=== PATIENT | female | born 1950 | race Caucasian/White ===

== ENCOUNTER 2022-06-19 13:15 | Emergency (ER) | payer MEDICARE, BC, SELFPAY ==
[2022-06-19 13:19] VITALS: BP 176/77; PULSE 82; RESP 18; TEMP 36.3; O2SAT 95; BMI 33.8
--- NOTE | 2022-06-19 13:37 | CRLHL7_ITS ---
For Patients: As a result of the Century Cures Act, medical imaging exams and procedure reports are released immediately into your electronic medical record. You may view this report before your referring provider. If you have questions, please contact your health care provider. INDICATION: Hematuria. Right-sided abdominal pain. TECHNIQUE: CT abdomen and pelvis without contrast. COMPARISON: None. FINDINGS: Lower chest: Minimal atelectasis at the lung bases Liver: Small hypoattenuating lesion at the dome of the right hepatic lobe, too small to characterize. Gallbladder and bile ducts: No stones or inflammation. No biliary dilatation. Pancreas: Unremarkable. No mass or inflammation. Spleen: Normal in size. No masses. Adrenal glands: Normal in size. No nodules. Kidneys: 7 millimeter stone in the mid/distal right ureter resulting in moderate hydronephrosis. Additional bilateral nonobstructing renal calculi are present. Asymmetric right perinephric fat stranding is noted. There is a small right renal cysts. GI tract: Unremarkable. Normal in caliber. No sign of mass or inflammation. Normal appendix. Colonic diverticulosis. Vasculature: Scattered atherosclerosis. 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 Lymph nodes: No lymphadenopathy. Peritoneum/Abdominal Wall: Prior ventral hernia repair. Residual or recurrent lower abdominal periumbilical fat containing hernia. No sign of mass or infiltration. No free air or significant free fluid. Pelvis: Lobular uterine contour with multiple coarse calcifications, likely reflecting fibroids Bones: No acute osseous abnormality. Degenerative spondylosis. IMPRESSION: 1. 7 millimeter stone in the mid/distal right ureter results in moderate hydronephrosis with asymmetric right perinephric fat stranding. 2. Additional small bilateral nonobstructing renal calculi. Please note that all CT scans at this facility use dose modulation, iterative reconstruction, and/or weight-based dosing when appropriate to reduce radiation dose to as low as reasonably achievable. Dictated by Johnny Gonsales MD @ 06/19/2022 2:17:27 PM (Electronically Signed)
[2022-06-19 13:48] LABS: Appearance Urine Cloudy (Clear); Bilirubin Urine 1+ (Negative); Blood Urine 3+ (Negative); Color Urine Brown (Yellow); Glucose Urine Negative (Negative); Ketones Urine Trace (Negative); Leukocyte Esterase Urine Negative (Negative); Nitrite Urine Negative (Negative); Protein Urine 2+ (Negative); Specific Gravity Urine >= 1.030 (1.000-1.030); Urobilinogen Urine 0.2 (0.2-1.0); pH Urine 5.5 (5.0-8.5)
[2022-06-19 13:51] LABS: Bacteria Urine Many; RBC Urine 50-100 (0-2); Squamous Epithelial Cell Urine Few (None-Few); WBC Urine 0-2 (0-5)
[2022-06-19 14:07] LABS: Basophils Absolute Auto 0.04 K/uL (0.00-0.30); Basophils Percent Auto 0.5 % (0.0-3.0); Eosinophils Absolute Auto 0.14 K/uL (0.00-0.50); Eosinophils Percent Auto 1.7 % (0.0-7.0); Hematocrit 34.6 % (33.0-51.0); Hemoglobin* 11.2 gm/dL (12.0-16.0); Immature Granulocytes Abs Auto 0.01 K/uL (0.00-0.30); Immature Granulocytes Pct Auto 0.1 %; Lymphocytes Percent Auto 15.2 % (20-44); Mean Corpuscular HGB Conc 32 gm/dL (32-36); Mean Corpuscular Hemoglobin 30 pg (26-34); Mean Corpuscular Volume 93 fL (80-100); Neutrophils Percent Auto 74.5 % (42.0-72.0); Platelet Count* 324 K/uL (140-440); Red Blood Count 3.72 m/uL (4.00-5.20); White Blood Count* 8.46 K/uL (4.50-11.00)
[2022-06-19] MEDS: 0.9 % SODIUM CHLORIDE 1000 ml 1,000 ML IV (14:08)
--- NOTE | 2022-06-19 14:09 | ED.ABDPAIN ---
HPI - Abdominal Pain General Date Seen: 06/19/22 Chief Complaint: Abdominal Pain Stated Complaint: Lower right abdomen and lower back pain Time Seen by Provider: 06/19/22 13:19 Source: patient Mode of arrival: ambulatory Limitations: no limitations History of Present Illness HPI narrative: Patient is a 71-year-old female presents here ambulatory to the emergency room for evaluation of right-sided abdominal pain, she has had this for the last 5 days, comes and goes, seemingly worse with the eating and moving around, but there is times specially at night time when she says she notices the pain worse, she has taken some Tylenol for the discomfort, but says she does know if this is really working at all. He describes the pain in her back, with radiation around her flank, down into her right lower quadrant. She noted today, and 2 episodes of redness of her urine. She has never before had this denies any diarrhea, nausea vomiting, fevers chills or sweats COVID symptoms such as sore throat chest pain coughing or other issues. She has had no previous history of any abdominal operations. Says she noted the pain at [employer] the other day. Associated symptoms: denies other symptoms Related Data Home Medications Medication Instructions Recorded Confirmed aspirin 81 mg tablet,delayed 81 mg PO DAILY 06/19/22 06/19/22 release (Adult Aspirin Regimen) calcium carbonate PO 06/19/22 latanoprost 0.005 % eye drops drp 06/19/22 lisinopril 10 mg tablet mg 06/19/22 metformin 1,000 mg tablet mg 06/19/22 simvastatin 20 mg tablet mg 06/19/22 vitamin d 06/19/22 Previous Rx's Medication Instructions Recorded tamsulosin 0.4 mg capsule (Flomax) 0.4 mg PO DAILY #30 caps 06/19/22 Allergies Allergy/AdvReac Type Severity Reaction Status Date / Time Penicillins Allergy Mild Verified 06/19/22 13:24 Review of Systems Status of ROS Reports: 10 or more systems reviewed and unremarkable except as noted in History and below PFSH PFS Social History Smoking Status: Never smoker How often do you have a drink containing alcohol: never AUDIT-C Alcohol total score: 0 Non-prescribed substance use: denies use service: No Exam Narrative: Exam Narrative: Patient is seen in room 5, Patient is speaking normally, no problem with slurring words, oriented x3. Head eyes ears nose and throat exam show equal pupils, no scleral icterus, extraocular muscles are normal, no facial droop, speech is normal, trachea normal and midline. Thyroid normal midline palpable not enlarged. Chest shows symmetrical rise bilaterally, normal auscultation with no wheezes, no increased work of breathing, no overt bruising or lesions seen, no tenderness is noted on auscultation. Heart sounds normal with no S3-S4 no murmurs clicks or gallops. Abdomen shows no obvious masses or hepatosplenomegaly, no organomegaly, bowel sounds are normal in all quadrants. No tenderness is noted also in all quadrants. Upper and lower extremities show normal power, normal range of motion, pulses are normal, sensations normal, fine motor movements are normal, pelvis is stable to rocking. Cervical spine shows normal range of motion, and palpably not tender. Thoracic spine shows normal range of motion, and palpably not tender, lumbar spine shows no tenderness to palpation percussion and is otherwise normal range of motion. Skin shows no rashes, petechiae or eccymosis. Const: Vital Signs, click to edit/add: Vital Signs - 24 hr 06/19/22 13:19 Temperature 97.3 F L Pulse Rate [Pulse Oximeter] 82 Respiratory Rate 18 Blood Pressure [Le ft Upper Arm] 176/77 H Pulse Oximetry 95 Oxygen Delivery Me thod Room Air Course Course Hospital Course: I think it would be reasonable to go home at this point, and follow-up with primary care, is a large stone but I think she can show that she can pass this. Profound regular 600 mg p.o. t.i.d. for the next 3-4 days, lots of fluids, Flomax, narcotics for breakthrough pain and return here if fevers chills intractable pain, or other abnormalities. Reevaluation(s) Reevaluation #1: Patient is doing well she has no pain, I think it would be reasonable even though the stone is large to let her go home, she has done well already. Ibuprofen 600 mg p.o. t.i.d. along with prescribed medications including the Flomax, and will see if she can pass this on her own, I went over in detail with her other risks benefits and side effects and signs to watch out for and when to come back she was very grateful for this. Time: 16:07 Vital Signs Vital signs: Initial Vital Signs Temperature 97.3 F L 06/19/22 13:19 Temperature Source Temporal Artery Scan 06/19/22 13:19 Pulse Rate 82 06/19/22 13:19 Respiratory Rate 18 06/19/22 13:19 Blood Pressure 176/77 H 06/19/22 13:19 Blood Pressure Mean 110 06/19/22 13:19 Blood Pressure Position Supine 06/19/22 13:19 Pulse Oximetry 95 06/19/22 13:19 Oxygen Delivery Method 06/19/22 13:19 Vital Signs Temperature 97.3 F L 06/19/22 13:19 Pulse Rate 82 06/19/22 13:19 Respiratory Rate 18 06/19/22 13:19 Blood Pressure 176/77 H 06/19/22 13:19 Pulse Oximetry 95 06/19/22 13:19 Oxygen Delivery Method 06/19/22 13:19 Temperature 97.3 F L 06/19/22 13:19 Pulse Rate 82 06/19/22 13:19 Respiratory Rate 18 06/19/22 13:19 Blood Pressure 176/77 H 06/19/22 13:19 Pulse Oximetry 95 06/19/22 13:19 Oxygen Delivery Method 06/19/22 13:19 MDM - Abdominal Pain MDM Narrative Medical decision making narrative: During the evaluation of this patient I considered multiple differential diagnosis including life-threatening differentials which are appendicitis, aortic aneurysm, mesenteric ischemia, bowel perforation, ectopic , volvulus and bowel obstruction, other differential diagnosis include but are not limited to inflammatory bowel disease, cholecystitis, pancreatitis, hepatitis, gastritis, GERD, diverticulitis, peptic ulcer disease, pyelonephritis/UTI, renal colic/stone, pelvic inflammatory disease, cervicitis, endometritis, intrauterine , dysfunctional uterine bleeding, ovarian cyst/torsion, spontaneous as well as other etiologies Medical Records Attestation: I reviewed the patient's medical records. Lab Data Attestation: I reviewed the patient's lab results. Lab results narrative: Hematuria is noted on her urine, no evidence of infection, her lipase and amylase are mildly L elevated although I do not see any evidence of pancreatitis, this CT was otherwise normal. Hemoglobin was slightly low, and this should be followed up by her primary care clinic in maybe a known finding, glucose was also elevated slightly, although might be spurious in this situation. COVID swabs and viral studies negative. Labs: Lab Results 06/19/22 06/19/22 06/19/22 Range/Units 13:30 13:55 13:55 WBC 8.46 (4.50-11.00) K/uL RBC 3.72 L (4.00-5.20) m/uL Hgb 11.2 L (12.0-16.0) gm/dL Hct 34.6 (33.0-51.0) % MCV 93 (80-100) fL MCH 30 (26-34) pg MCHC 32 (32-36) gm/dL RDW Coeff of [place] 13.0 (11.5-15.5) % Plt Count 324 (140-440) K/uL Neut % (Auto) 74.5 H (42.0-72.0) % Lymph % (Auto) 15.2 L (20-44) % Charles % (Auto) 8.0 (0.0-11.0) % Eos % (Auto) 1.7 (0.0-7.0) % Baso % (Auto) 0.5 (0.0-3.0) % Neut # (Auto) 6.30 (1.7-7.0) K/uL Lymph # (Auto) 1.30 (0.90-2.90) K/uL Charles # (Auto) 0.70 (0.00-0.90) K/UL Eos # (Auto) 0.14 (0.00-0.50) K/uL Baso # (Auto) 0.04 (0.00-0.30) K/uL Sodium 142 (135-149) mmol/L Potassium 4.0 (3.6-5.1) mmol/L Chloride 109 (96-114) mmol/L Carbon Dioxide 21 (20-32) mmol/L BUN 28 (7-30) mg/dL Creatinine 1.5 (0.5-1.5) mg/dL Estimated Creat Clear 27.21 Estimated GFR 37 ml/min Glucose 142 H (60-115) mg/dL Calcium 10.0 (8.4-10.6) mg/dL Total Bilirubin 0.3 (0.1-1.5) mg/dL Direct Bilirubin 0.2 (0.0-0.5) mg/dL AST 20 (12-35) U/L ALT 18 (4-35) U/L Alkaline Phosphatase 64 (40-150) U/L Total Protein 7.1 (6.0-8.3) g/dL Albumin 4.1 (3.3-5.0) g/dL Amylase 107 H (18-89) U/L Lipase (23-300) U/L Urine Color Brown A (Yellow) Urine Appearance Cloudy A (Clear) Urine pH 5.5 (5.0-8.5) Ur Specific Falkner >= 1.030 (1.000-1.030) Urine Protein 2+ A (Negative) Urine Glucose (UA) Negative (Negative) Urine Ketones Trace A (Negative) Urine Blood 3+ A (Negative) Urine Nitrite Negative (Negative) Urine Bilirubin 1+ A (Negative) Urine Urobilinogen 0.2 (0.2-1.0) Ur Leukocyte Esterase Negative (Negative) Urine RBC 50-100 A (0-2) Urine WBC 0-2 (0-5) Urine WBC Clumps [employer] Ur Squamous Epith Cells Few (None-Few) Danyel Biurate Crystals [employer] Calcium Carbonate Cryst [employer] Calcium Phosphate Cryst [employer] Calcium Oxalate Crystal [employer] Cystine Crystals [employer] Uric Acid Crystals [employer] Triple Phos Crystals [employer] Sulfur Crystals [employer] Cholesterol Crystals [employer] Tyrosine Crystals [employer] Hippuric Acid Crystals [employer] Amorphous Sediment [employer] Other Sediment [employer] Urine Bacteria Many A (None) Fatty Casts [employer] Hyaline Casts [employer] Fine Granular Casts [employer] Coarse Granular Casts [employer] Waxy Casts [employer] RBC Casts [employer] WBC Casts [employer] Other Casts [employer] Urine Starch [employer] Urine Mucus [employer] Urine Trichomonas [employer] Urine Yeast [employer] SARS-CoV-2 (PCR) (Negative) Influenza Type A (PCR) (Negative) Influenza Type B (PCR) (Negative) RSV (PCR) (Negative) 06/19/22 06/19/22 Range/Units 13:55 13:57 WBC (4.50-11.00) K/uL RBC (4.00-5.20) m/uL Hgb (12.0-16.0) gm/dL Hct (33.0-51.0) % MCV (80-100) fL MCH (26-34) pg MCHC (32-36) gm/dL RDW Coeff of [place] (11.5-15.5) % Plt Count (140-440) K/uL Neut % (Auto) (42.0-72.0) % Lymph % (Auto) (20-44) % Charles % (Auto) (0.0-11.0) % Eos % (Auto) (0.0-7.0) % Baso % (Auto) (0.0-3.0) % Neut # (Auto) (1.7-7.0) K/uL Lymph # (Auto) (0.90-2.90) K/uL Charles # (Auto) (0.00-0.90) K/UL Eos # (Auto) (0.00-0.50) K/uL Baso # (Auto) (0.00-0.30) K/uL Sodium (135-149) mmol/L Potassium (3.6-5.1) mmol/L Chloride (96-114) mmol/L Carbon Dioxide (20-32) mmol/L BUN (7-30) mg/dL Creatinine (0.5-1.5) mg/dL Estimated Creat Clear Estimated GFR ml/min Glucose (60-115) mg/dL Calcium (8.4-10.6) mg/dL Total Bilirubin (0.1-1.5) mg/dL Direct Bilirubin (0.0-0.5) mg/dL AST (12-35) U/L ALT (4-35) U/L Alkaline Phosphatase (40-150) U/L Total Protein (6.0-8.3) g/dL Albumin (3.3-5.0) g/dL Amylase (18-89) U/L Lipase 328 H (23-300) U/L Urine Color (Yellow) Urine Appearance (Clear) Urine pH (5.0-8.5) Ur Specific Falkner (1.000-1.030) Urine Protein (Negative) Urine Glucose (UA) (Negative) Urine Ketones (Negative) Urine Blood (Negative) Urine Nitrite (Negative) Urine Bilirubin (Negative) Urine Urobilinogen (0.2-1.0) Ur Leukocyte Esterase (Negative) Urine RBC (0-2) Urine WBC (0-5) Urine WBC Clumps Ur Squamous Epith Cells (None-Few) Danyel Biurate Crystals Calcium Carbonate Cryst Calcium Phosphate Cryst Calcium Oxalate Crystal Cystine Crystals Uric Acid Crystals Triple Phos Crystals Sulfur Crystals Cholesterol Crystals Tyrosine Crystals Hippuric Acid Crystals Amorphous Sediment Other Sediment Urine Bacteria (None) Fatty Casts Hyaline Casts Fine Granular Casts Coarse Granular Casts Waxy Casts RBC Casts WBC Casts Other Casts Urine Starch Urine Mucus Urine Trichomonas Urine Yeast SARS-CoV-2 (PCR) Negative SARS-CoV-2 (Negative) Influenza Type A (PCR) Negative PCR FLU A (Negative) Influenza Type B (PCR) Negative PCR FLU B (Negative) RSV (PCR) Negative PCR RSV (Negative) Imaging Data CT scan - abdomen: Attestation: I have reviewed the pertinent imaging results. My impression: Large 8 mm stone, with moderate hydronephrosis noted on the right collecting system, the stone is approximately 4 cm from the UVJ on the right. Radiologist's impression: Patient: BRANT DELGADILLO Facility:?[facility] Patient ID:?[id number] Site Patient ID:?[id number]. Site :?[id number] Study:?CT Abdomen/Pelvis W/O-06/19/2022 2:06:27 PM Ordering Physician:Theresa Maldonado Final Report: INDICATION: Hematuria. Right-sided abdominal pain. TECHNIQUE: CT abdomen and pelvis without contrast. COMPARISON: None. FINDINGS: Lower chest: Minimal atelectasis at the lung bases Liver: Small hypoattenuating lesion at the dome of the right hepatic lobe, too small to characterize. Gallbladder and bile ducts: No stones or inflammation. No biliary dilatation. Pancreas: Unremarkable. No mass or inflammation. Spleen: Normal in size. No masses. Adrenal glands: Normal in size. No nodules. Kidneys: 7 millimeter stone in the mid/distal right ureter resulting in moderate hydronephrosis. Additional bilateral nonobstructing renal calculi are present. Asymmetric right perinephric fat stranding is noted. There is a small right renal cysts. GI tract: Unremarkable. Normal in caliber. No sign of mass or inflammation. Normal appendix. Colonic diverticulosis. Vasculature: Scattered atherosclerosis. 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 Lymph nodes: No lymphadenopathy. Peritoneum/Abdominal Wall: Prior ventral hernia repair. Residual or recurrent lower abdominal periumbilical fat containing hernia. No sign of mass or infiltration. No free air or significant free fluid. Pelvis: Lobular uterine contour with multiple coarse calcifications, likely reflecting fibroids Bones: No acute osseous abnormality. Degenerative spondylosis. IMPRESSION: 1. 7 millimeter stone in the mid/distal right ureter results in moderate hydronephrosis with asymmetric right perinephric fat stranding. 2. Additional small bilateral nonobstructing renal calculi. Please note that all CT scans at this facility use dose modulation, iterative reconstruction, and/or weight-based dosing when appropriate to reduce radiation dose to as low as reasonably achievable. Dictated by Johnny Gonsales MD @ 06/19/2022 2:17:27 PM (Electronic Signature) Discharge Plan Discharge Clinical Impression: Elevated blood pressure reading, Anemia, Calculus of kidney, Urolithiasis, Renal colic on right side Patient Disposition: Home, Self-Care Condition: Stable Instructions: Kidney Stones (ED), Renal Colic (ED) Additional Instructions: We will send you home at this point he will take ibuprofen 600 mg p.o. t.i.d. which is a single best medication for relaxation of your ureter and to be able to pass the kidney stone. I do recommend you take the blood pressure medication that I prescribed, you can stop this after you have no more pain of passed the stone. The narcotic can be use for breakthrough pain, please do not use this in drive, use alcohol with that, as it can make you dizzy. Please also use medications for constipation if using this medication. As a will constipate your. Follow-up with primary care and 3-5 days for recheck. Blood pressure is elevated but probably due to the fact that you have some pain. This should be rechecked at her visit with your primary care physician he did have very mild anemia. Activity Level: No Restrictions Prescriptions: New tamsulosin [Flomax] 0.4 mg capsule 0.4 mg PO DAILY Qty: 30 0RF No Action simvastatin 20 mg tablet Label Comments: TAKE 1 TABLET BY MOUTH AT BEDTIME metformin 1,000 mg tablet Label Comments: TAKE 1 TABLET BY MOUTH IN THE MORNING AND 1 IN THE EVENING WITH MEALS lisinopril 10 mg tablet Label Comments: TAKE 1 TABLET BY MOUTH ONCE DAILY calcium carbonate [Calcium 600] PO vitamin d aspirin [Adult Aspirin Regimen] 81 mg tablet,delayed release (DR/EC) 81 mg PO DAILY latanoprost 0.005 % drops Label Comments: INSTILL 1 DROP INTO EACH EYE AT BEDTIME Follow Up/Referrals: Provider,Not a Local [Primary Care Provider] - Stand Alone Forms: [employer] [place] Info Instructions
[2022-06-19 14:11] LABS: Slide Review Reflex No
[2022-06-19] MEDS: KETOROLAC 30 MG/ML inj 15 MG IVP (14:12)
[2022-06-19 14:29] LABS: Albumin* 4.1 g/dL (3.3-5.0); Chloride* 109 mmol/L (96-114)
[2022-06-19 14:30] LABS: Sodium* 142 mmol/L (135-149)
[2022-06-19 14:32] LABS: Amylase* 107 U/L (18-89); Carbon Dioxide* 21 mmol/L (20-32)
[2022-06-19 14:33] LABS: Alanine Aminotransferase* 18 U/L (4-35); Alkaline Phosphatase* 64 U/L (40-150); Aspartate Amino Transferase* 20 U/L (12-35); Bilirubin Direct* 0.2 mg/dL (0.0-0.5); Bilirubin Total* 0.3 mg/dL (0.1-1.5); Blood Urea Nitrogen* 28 mg/dL (7-30); Creatinine* 1.5 mg/dL (0.5-1.5); Est. Creatinine Clearance* 27.21; Estimated Glomerular Filt Rate 37 ml/min; Glucose* 142 mg/dL (60-115); Total Protein* 7.1 g/dL (6.0-8.3)
[2022-06-19 14:40] LABS: Lipase* 328 U/L (23-300)
[2022-06-19 14:40] LABS: PCR FLU A Negative PCR FLU A (Negative); PCR FLU B Negative PCR FLU B (Negative); PCR RSV Negative PCR RSV (Negative)
[2022-06-19 14:41] LABS: SARS PCR* Negative SARS-CoV-2 (Negative)
[2022-06-19] MEDS: TAMSULOSIN HCL 0.4 MG CAPSULE PO (15:42)
== END 2022-06-19 15:48 | disposition home or self-care (01) ==
PROVIDERS: Emergency Provider Family Medicine
DX: N20.2 Calculus of kidney with calculus of ureter (principal); D64.9 Anemia, unspecified; R03.0 Elevated blood-pressure reading, without diagnosis of hypertension
CPT/HCPCS: 36415; 74176; 80048; 80076; 81001; 82150; 83690; 85025; 87086; 87502; 87634; 87635; 96374; 99284; A9270; J1885; J7030